=== PATIENT | male | born 1930 | race Caucasian/White ===

== ENCOUNTER → 2018-07-28 08:01 | Day surgery (SDC) | payer MEDICARE ==
[~2018-07-28 08:01] MED LIST: Heparin 2 UNITS/ML IVPREMIX* 1,000 ML IV ONE; Iodixanol 320 (CONTRAST) 100 ML SDV ONE; Lidocaine 1% INJ* 10 MG/ML 30 ML SDV ONE; Midazolam* 1 MG/ML 10 ML VIAL (10 MG) ONE; NS 0.9% 1000 ML* 1,000 ML IV SCH; fentaNYL* 50 MCG/ML 2 ML VIAL (100 MCG VIAL) ONE
[2018-07-28 16:04] VITALS: BP 138/109
--- NOTE | 2018-07-28 20:19 | CATH ---
CC: Dr. Victoriano Cm; Dr. Amarilis Fields; Dr. Homero Duvall, [facility], [facility] CARDIAC CATHETERIZATION REPORT: DATE OF PROCEDURE: 07/28/18 INDICATION FOR PROCEDURE: The patient being evaluated for upcoming mitral valve clip procedure with a history of significant underlying coronary artery disease and bypass in the past to reassess coronary anatomy and bypass in light of the mitral clip procedure. PROCEDURE: Coronary arteriography of the left coronary artery, LITTLEJOHN graft arteriography. CONSENT: The patient was interviewed and examined in the holding area where the risks and benefits were explained. He and his son understood them and he wished to proceed. PRE-CARDIAC CATHETERIZATION LABORATORY RESULTS: Hemoglobin and hematocrit of 10.9 and 34, platelet count of 149,000. Sodium 139, potassium 4.2, chloride 102 , bicarb 29, BUN and creatinine of 44 and 2.4. MEDICATIONS GIVEN DURING THE PROCEDURE: The patient was premedicated for DYE allergy with prednisone 50 mg at 12 hours, 6 hours and 1 hour before the procedure and 25 mg of Benadryl at 12 hours, 6 hours and 1 hour before the procedure. He was given 0.5 of Versed in the sleep lab technician and he was placed on 2 L oxygen by nasal cannula. APPROACH PURSUED: Right femoral artery. EQUIPMENT UTILIZED: 1. Right femoral artery sheath was a 5-[place] 11-cm sheath. 2. Left coronary artery diagnostic catheter - an FL5 curve 5-[place] catheter. 3. Internal mammary artery diagnostic catheter - a 5-[place] IM catheter. 4. The diagnostic guidewire was a 175 length J-tipped guidewire. DESCRIPTION OF PROCEDURE: The patient underwent hydration prior to cardiac catheterization in the holding area for 2-1/2 hours prior to the procedure. This was in light of his renal insufficiency. He then was brought to the cardiovascular laboratory and a formal time-out was performed. He was prepped and draped in a sterile fashion. The right groin area was anesthetized with 1% lidocaine. The right femoral artery was cannulated with an anterior wall only stick and the sheath was placed. Left coronary artery arteriography was performed followed by LITTLEJOHN graft arteriography. Following this, the decision was made to remove the sheath manually because of heavy calcification in the femoral artery. The sheath was removed and hemostasis was obtained with local pressure. The total contrast used was 15 cc of Visipaque dye. The radiation exposure included 7.2 minutes of fluoro time. The air kerma radiation was 427 milligray. The DAP radiation was 3422 microgray per meter square. RESULTS: LEFT CORONARY ARTERIOGRAPHY: The left coronary artery revealed a totally occluded proximal LAD. There was a stent noted from the left main into the proximal circumflex. The circumflex artery supplied a high bifurcating trifurcation marginal branch, which provided collateral blood flow to what appeared to be either a lower lying mid obtuse marginal branch or the last posterior left ventricular branch of a super dominant right coronary artery. Collateral blood flow retrograde filled back to most likely the right coronary artery and there was noted to be a lesion in the right coronary artery prior to a low-lying posterior LV branch, which was approximately 75%. Of note, the stent from the left main into the circumflex did appear to have significant in-stent restenosis when viewed in the second image (cranial IRISH projection). The degree of luminal reduction seen in the stent appeared to be as much as 75% to 80%. LITTLEJOHN GRAFT ARTERIOGRAPHY TO MID LAD: The LITTLEJOHN graft was widely patent with good anastomosis. There appeared to be collateral blood flow filling a posterior descending artery of the right coronary artery. OVERALL ASSESSMENT: Suggestive findings of significant in-stent restenosis within the stent from the left main into the circumflex artery. The LITTLEJOHN graft is widely patent with good anastomosis and collateral blood flow seen to what appears to be a PDA most likely of the right coronary artery. Collateral blood flow was seen from the circumflex to the distal most branch of a superdominant right coronary artery. Of note, in the past, a vein graft to that distal vessel had been stented and the stent to that vessel was noted on prior studies. The vein graft to this branch was known to be totally occluded in the past as was the vein graft to the right coronary artery. The minto right coronary artery was also known to be totally occluded at its origin. As such, no injections to these 3 vessels were performed in order to minimize dye load given his significant renal insufficiency. He has stage 4 chronic kidney disease. [id number]/[facility] #: [id number] [place]
== END | disposition home or self-care (01) ==
LOC: CHICATH 08:01
PROVIDERS: ATTEND Internal Medicine Cardiovascular Disease
DX: I35.0 Nonrheumatic aortic (valve) stenosis (principal); I25.810 Atherosclerosis of coronary artery bypass graft(s) without angina pectoris; Z95.1 Presence of aortocoronary bypass graft; I48.91 Unspecified atrial fibrillation; E78.5 Hyperlipidemia, unspecified; D50.9 Iron deficiency anemia, unspecified; I44.0 Atrioventricular block, first degree; N18.3 Chronic kidney disease, stage 3 (moderate); I12.9 Hypertensive chronic kidney disease with stage 1 through stage 4 chronic kidney disease, or unspecified chronic kidney disease
CPT/HCPCS: 93455; C1887; J1644; J2250; J3010

== ENCOUNTER 2019-02-11 14:14 | Inpatient (IN) | payer MEDICARE ==
[2019-02-11 18:44] LABS: Urine Appearance Clear; Urine Bilirubin Negative (Negative); Urine Blood Negative (Negative); Urine Color Yellow; Urine Glucose Negative (Negative); Urine Ketones Negative (Negative); Urine Nitrite Negative (Negative); Urine Protein Negative (Negative); Urine Specific Gravity 1.011 (1.010-1.030); Urine Urobilinogen Negative (Negative)
--- NOTE | 2019-02-11 18:56 | ED ---
GI/ HPI - HPI Summary HPI Summary: This patient is a 88 year old M presenting to ED with a chief complaint of penile swelling since four days ago. Patient fell two weeks ago and he has since retained fluid. Patient is on a diuretic for bilateral LE swelling. Four days ago, the swelling has spread to this penis. While in the waiting room at the ER, patient reports the swelling resolved itself after he used the bathroom multiple times. In the ED waiting room, patient was sitting on a wheelchair. Patient is not on blood thinners. The patient rates the pain 5/10 in severity. Symptoms aggravated by nothing. Symptoms alleviated by nothing. Patient denies any CP pain, abdominal pain, dyspnea, difficulty urinating, redness/warmth/pain of the penis. - History of Current Complaint Chief Complaint: EDGeneral Time Seen by Provider: 02/11/19 18:40 Stated Complaint: BOTH FEET INJURED FROM FALL Hx Obtained From: Patient Onset/Duration: Started Days Ago - 4 days, Resolved - Penile swelling resolved in ED waiting room, but bilateral LE swelling still present Pain Intensity: 0 - Allergy/Home Medications Allergies/Adverse Reactions: Allergies Allergy/AdvReac Type Severity Reaction Status Date / Time Iodinated Contrast- Oral and Allergy Unknown Verified 02/11/19 14:27 IV Dye Reaction Details PMH/Surg Hx/FS Hx/Imm Hx Endocrine/Hematology History: Reports: Hx Anemia Cardiovascular History: Reports: Hx Atrial Fibrillation, Hx Coronary Artery Disease, Hx Hypercholesterolemia, Hx Hypertension, Other Cardiovascular Problems /Disorders - Aortic valve disorder, 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 Cardiac cath and stents 1995. Femoral hernia repair 2008. Hoa fundoplication 1999. Appendectomy Infectious Disease History: No Infectious Disease History: Denies: Traveled Outside the [place] in Last 30 Days - Family History Known Family History: Positive: Cardiac Disease, Other - cancer - Social History Alcohol Use: Occasionally Alcohol Amount: 1 glass of wine Hx Substance Use: No Substance Use Type: Reports: None Hx Tobacco Use: Yes Smoking Status (MU): Former Smoker Type: Cigarettes Have You Smoked in the Last Year: No Review of Systems Negative: Chest Pain Negative: Shortness Of Breath Negative: Abdominal Pain Genitourinary: Negative - Difficulty urinating, penile redness/warmth/pain, Other - Penile swelling Positive: Edema - Bilateral LE All Other Systems Reviewed And Are Negative: Yes Physical Exam - Summary Physical Exam Summary: GENERAL: Patient is a well-developed and nourished M who is lying comfortable in the stretcher. Patient is not in any acute respiratory distress. HEAD AND FACE: Normocephalic EYES: PERRLA, EOMI x 2. EARS: Hearing grossly intact. MOUTH: Oropharynx within normal limits. NECK: Supple, trachea is midline, no adenopathy, no JVD, no carotid bruit. CHEST: Symmetric, no tenderness at palpation LUNGS: Clear to auscultation bilaterally. No wheezing or crackles. CVS: Regular rate and rhythm, S1 and S2 present, no murmurs or gallops appreciated. ABDOMEN: Soft, non-tender. Bowel sounds are normal. No abnormal abdominal pulsations. EXTREMITIES: 3+ bilateral pitting edema up to the groin GROIN: no obvious swelling to penile region, no tenderness to palpation in scrotal region NEURO: Alert and oriented x 3. No acute neurological deficits. Speech is normal and follows commands. SKIN: Dry and warm Triage Information Reviewed: Yes Vital Signs On Initial Exam: Initial Vitals Temp Pulse Resp BP Pulse Ox 97.5 F 92 19 142/83 97 02/11/19 14:24 02/11/19 14:24 02/11/19 14:24 02/11/19 14:24 02/11/19 14:24 Vital Signs Reviewed: Yes Diagnostics - Vital Signs Vital Signs Temp Pulse Resp BP Pulse Ox 02/11/19 16:26 97.7 F 88 17 129/69 96 02/11/19 14:24 97.5 F 92 19 142/83 97 - Laboratory Lab Results: Lab Results 02/11/19 Range/Units 18:05 Urine Color Yellow Urine Appearance Clear Urine pH 6.0 (5-9) Ur Specific [place] 1.011 (1.010-1.030) Urine Protein Negative (Negative) Urine Ketones Negative (Negative) Urine Blood Negative (Negative) Urine Nitrate Negative (Negative) Urine Bilirubin Negative (Negative) Urine Urobilinogen Negative (Negative) Ur Leukocyte Esterase Negative (Negative) Urine Glucose Negative (Negative) Urine Ascorbic Acid * A (Negative) Result Diagrams: 02/13/19 05:59 02/13/19 05:59 Lab Statement: Any lab studies that have been ordered have been reviewed, and results considered in the medical decision making process. - Radiology CXR Radiology Interpretation Completed By: ED Physician Summary of Radiographic Findings: Cardiomegaly, CHF, pending official radiology report. - EKG 1954 Cardiac Rate: NL - 90 EKG Rhythm: Atrial Fibrillation Summary of EKG Findings: Atrial fibrillation at 90 BPM, intraventricular conduction delay, non-specific T wave changes throughout. Re-Evaluation - Re-Evaluation First Eval Re-Evaluation Time: 20:02 Comment: Discussed results with patient. Patient agrees to be admitted to [facility]. GIGU Course/Dx - Course Course Of Treatment: This patient is a 88 year old M presenting to ED with a chief complaint of penile swelling since four days ago that resolved in the ED waiting room. Patient still has severe bilateral LE swelling. In the ED course, patient received Lasix. Blood work and UA obtained. CXR revealed cardiomegaly, CHF, pending official radiology report. EKG at 1954 revealed atrial fibrillation at 90 BPM, intraventricular conduction delay, non-specific T wave changes throughout. Case discussed with hospitalist. I discussed results with patient. The patient agrees with this plan. Patient will be admitted to [facility] with dx of CHF. - Diagnoses Provider Diagnoses: CHF (congestive heart failure) - Physician Notifications Discussed Care Of Patient With: Jose Belle Time Discussed With Above Provider: 20:01 Instructed by Provider To: Admit As Inpatient - Discussed case with Dr. Belle, hospitalist, who accpeted patient for admission to [facility]. - Critical Care Time Critical Care Time: 30-74 min - 30 minutes Discharge - Sign-Out/Discharge Documenting (check all that apply): Patient Departure - Admit Patient Received Moderate/Deep Sedation with Procedure: No - Discharge Plan Condition: Fair Disposition: ADMITTED TO [facility] - Billing Disposition and Condition Condition: FAIR Disposition: Admitted to [facility] - Attestation Statements Document Initiated by Scribe: Yes Documenting Scribe: Pk Patel Provider For Whom Scribe is Documenting (Include Credential): Courtney Guerin MD Scribe Attestation: I, Pk Patel, scribed for Courtney Guerin MD on 02/13/19 at 0812. Scribe Documentation Reviewed: Yes Provider Attestation: The documentation as recorded by the scribe, Pk Patel accurately reflects the service I personally performed and the decisions made by me, Courtney Guerin MD Status of Scribe Document: Viewed
[2019-02-11 18:58] LABS: ABS Eosinophils 0.2 10^3/ul (0-0.6); ABS Lymphocytes 0.8 10^3/ul (1.0-4.8); ABS Monocytes 0.5 10^3/ul (0-0.8); ABS Neutrophils 4.1 10^3/ul (1.5-7.7); Eosinophil % 3.6 %; Hematocrit 30 % (42-52); Hemoglobin 9.6 g/dL (14.0-18.0); Lymphocyte % 13.9 %; Mean Corpuscular HGB Conc 32 g/dL (31-36); Mean Corpuscular Hemoglobin 29 pg (27-31); Mean Corpuscular Volume 90 fL (80-94); Mean Platelet Volume 7.3 fL (7.4-10.4); Platelet Count 231 10^3/uL (150-450); Red Blood Count 3.35 10^6 /uL (4.18-5.48); Red Cell Distribution Width 18 % (10-15); White Blood Count 5.6 10^3/uL (3.5-10.8)
[2019-02-11 19:01] LABS: INR 1.34 (0.82-1.09)
[2019-02-11 19:10] LABS: ALT 13 U/L (7-52); AST 31 U/L (13-39); Albumin 4.1 g/dL (3.2-5.2); Albumin/Globulin Ratio 1.2 (1-3); Alkaline Phosphatase 129 U/L (34-104); Anion Gap 8 mmol/L (2-11); BUN/Creatinine Ratio 15.3 (8-20); Blood Urea Nitrogen 29 mg/dL (6-24); C Reactive Protein 7.69 mg/L (<8.01); CO2 Carbon Dioxide 26 mmol/L (22-32); Calcium 9.6 mg/dL (8.6-10.3); Chloride 102 mmol/L (101-111); EGFR African American 40.9 (>60); EGFR Non-African American 33.8 (>60); Globulin 3.4 g/dL (2-4); Glucose 124 mg/dL (70-100); Potassium 3.9 mmol/L (3.5-5.0); Sodium 136 mmol/L (135-145); Total Protein 7.5 g/dL (6.4-8.9)
[2019-02-11] MEDS ORDERED: Furosemide IV* 10 MG/ML VIAL (40 MG) IV SLOW PU ONE (19:18)
[2019-02-11 19:45] LABS: Troponin I 0.05 ng/mL (<0.04)
[2019-02-11] MEDS: Heparin VIAL(*) 5000 UNITS/ML VIAL (FIVE THOUSAND) SUBCUT SCH (22:28)
[2019-02-11 23:03] LABS: Troponin I 0.05 ng/mL (<0.04)
--- NOTE | 2019-02-11 23:13 | HP ---
CC: Amarilis Fields MD; Victoriano Cm MD * HISTORY AND PHYSICAL: DATE OF ADMISSION: 02/11/19 PRIMARY CARE PROVIDER: Amarilis Fields MD BIOLOGICAL LAB TECHNICIAN: Victoriano Cm MD ATTENDING PHYSICIAN: Jose Belle MD * (dictated by DARA Sue). CHIEF COMPLAINT: 1. Penile edema. 2. Bilateral lower extremity edema. HISTORY OF PRESENT ILLNESS: Mr. Greene is an 88-year-old male with a past medical history of CHF, atrial fibrillation, CAD, anemia, who presented to the ER today stating that he fell approximately 2 weeks ago and has had increasing bilateral lower extremity edema since then. He notes that approximately 4 days ago, he started to experience penile swelling. He states again that he fell 2 weeks ago, he had no head injury. He states that he was standing and his right knee twisted and he fell onto the floor. He is unsure of how he landed, but notes that after the fall, he started to develop lower extremity edema that slowly worsened. He was and still is able to walk after the fall. The patient states that he typically gets lower extremity edema during the day, but this disappears at night with elevation of the legs. He states that his swelling has not decreased for the last 2 weeks. He notes that 3 to 4 days ago, he started to notice penile swelling. This is his biggest concern and what prompted him to seek evaluation at the ER. While in the waiting room, the patient urinated approximately 3 times and notes that the penile swelling disappeared, but he continues to have lower extremity edema. The patient states that he has good urine output. He states that he weighs himself daily. He typically weighs 175 and now is weighing close to 190 pounds. He has not increased his fluids or sodium, although he does not measure or restrict these. His torsemide was increased from 20 to 40 approximately 5 days ago. He denies shortness of breath. He does note some dyspnea on exertion, but notes that this has not changed recently. He denies PND. While in the emergency department, the patient received a full workup which included lab work revealing chronic anemia, chronically elevated creatinine which is within normal limits. His alk phos was elevated. He had a troponin of 0.05. BNP was 1147. Urinalysis was negative. EKG showed irregular rhythm, atrial fibrillation. Chest x-ray was ordered and results are pending, although there appears to be some cephalization and cardiomegaly. The patient was given furosemide 40 mg IV. Hospitalist team was asked to evaluate the patient for admission. PAST MEDICAL HISTORY: 1. CHF. 2. Atrial fibrillation. 3. Coronary artery disease: CABG 1984, stent 1995. 4. Mitral valve repair. 5. Hypertension. 6. Hyperlipidemia. 7. Anemia. 8. GERD, Castillo esophagus. 9. BPH. 10. First-degree AV block. 11. Gout. 12. CKD stage 3. 13. Osteoarthritis. 14. Depression. PAST SURGICAL HISTORY: 1. 1984, CABG. 2. 1995, stent. 3. 2008, femoral hernia repair. 4. 1999, Hoa fundoplication, appendectomy. HOME MEDICATIONS: 1. Acetaminophen 500 mg p.o. b.i.d. 2. Aspirin 81 mg p.o. daily. 3. Digoxin 0.125 mg p.o. daily. 4. Finasteride 5 mg p.o. daily. 5. Iron polysaccharide complex 150 mg p.o. daily. 6. Isosorbide mononitrate ER 30 mg p.o. daily. 7. Metoprolol succinate 25 mg p.o. daily. 8. Multivitamin 1 cap p.o. daily. 9. Nitroglycerin 0.4 mg sublingual p.r.n. chest pain q.5 minutes x3. 10. Omeprazole 20 mg p.o. daily. 11. Torsemide 40 mg p.o. daily. 12. Vitamin B complex 1 cap p.o. daily. DRUG ALLERGIES: IODINATED CONTRAST, hives. FAMILY HISTORY: Positive for heart disease. Father had heart disease, CVA. Two sisters with cancer, unsure what kind. Mother of stroke. Negative for diabetes mellitus. SOCIAL HISTORY: The patient is a former smoker. He states that he smoked three and a half packs per day from the ages of 18 to 21 and then discontinued use of tobacco. He drinks alcohol daily, 1 wine per day. He does not use any other drugs. He lives at home alone. His son lives next door to him. In the event that he is unable to make his own medical decisions, he has appointed his son, Andi Greene, to be his surrogate decision maker. REVIEW OF SYSTEMS: A 10-point review of systems has been performed and all the pertinent positives and negatives are in the HPI, all other systems are negative. PHYSICAL EXAMINATION GENERAL: Mr. Greene is a well-developed, well-nourished, overweight, elderly white male, who is sitting up in bed. He is breathing comfortably. He appears to be in no acute distress. He is cooperative, appropriate, pleasant. VITAL SIGNS: Temperature 98.1, temporal; heart rate 87; respiratory rate 16; oxygen saturation 97% on room air; blood pressure 151/107. HEENT: Normocephalic, atraumatic. PERRL. EOMI. Nonicteric sclerae. Hearing grossly intact. Oral mucous membranes are moist without lesions. RESPIRATORY: Symmetrical chest expansion without use of accessory muscles. Lungs are clear to auscultation bilaterally without rhonchi, wheezes, or rubs. CARDIOVASCULAR: Irregular rhythm, rate controlled. S1, S2 present without murmurs, rubs, or gallops. Positive JVD. Positive bilateral lower extremity edema, 3+ pitting to the groin. Negative for penile edema. ABDOMEN: Bowel sounds noted in all quadrants. Nontender to palpation. MUSCULOSKELETAL: Full range of motion without pain or deformities. NEUROLOGIC: The patient is awake. He is alert and oriented x3. Cranial nerves are grossly intact and he is able to move all of his extremities. DIAGNOSTIC STUDIES AND LABORATORY DATA: RBC 3.35, Hgb 9.6, HCT 30, RDW 18, MPV 7.3. BUN 29, creatinine 1.89. Glucose 124. Alk phos 129. Troponin 0.05. CRP 7.69. BNP 1147. Chest x-ray pending but the patient does have cardiomegaly. There appears to be some cephalization. ECG, rate of 90. There appears to be atrial fibrillation, rhythm is irregular. ASSESSMENT AND PLAN: Mr. Greene is an 88-year-old male with a past medical history of congestive heart failure, atrial fibrillation, coronary artery disease, who presented to the emergency room today with complaints of lower extremity and penile swelling. He was found to have some cephalization on chest x-ray and elevated BNP, positive JVD and swelling in the lower extremities. The patient will be admitted inpatient for: 1. Acute on chronic congestive heart failure exacerbation. Due to physical exam findings and elevated BNP, it is reasonable to suspect that the patient is experiencing exacerbation of his heart failure. His last echo was 06/13/18. We will repeat his echo tomorrow. He was given Lasix 40 IV in the ER. He will continue on Lasix 40 IV daily. We will hold torsemide at this time. Daily weights and I's and O's have been ordered. The patient is also noted to have had an approximately 15-pound weight gain. There is concern in the setting of recent fall and then development of lower extremity edema that there may have been some trauma to the lower extremities. Ultrasound, venous Doppler of bilateral lower extremities have been ordered. 2. Atrial fibrillation. Continue metoprolol, digoxin. The patient does not appear to be on anticoagulation. 3. Hypertension. Continue home medication metoprolol. 4. Coronary artery disease. Continue aspirin, metoprolol. 5. Benign prostatic hypertrophy. Continue finasteride. 6. Gastroesophageal reflux disease, Castillo esophagus. Continue omeprazole. 7. FEN. The patient has been placed on heart-healthy diet, low sodium. IV fluids will be held at this time due to fluid overload. 8. DVT prophylaxis. According to the DVT Risk Assessment, the patient scores 3 placing him at high risk. He will be started on heparin. 9. Code status. DNR/DNI. MOLST has been completed. TIME SPENT: Approximately 60 minutes was spent on this admission, greater than half that time was spent with the patient and his son obtaining history, performing physical exam, and reviewing the plan of care. The case has been reviewed with my attending, Dr. Belle, who is in agreement with the plan of care. DARA COLLADO [id number]/[facility] #: [id number] MTDD
[2019-02-12 02:04] LABS: Troponin I 0.05 ng/mL (<0.04)
[2019-02-12] MEDS: Heparin VIAL(*) 5000 UNITS/ML VIAL (FIVE THOUSAND) SUBCUT SCH ×3 (05:59→21:02)
[2019-02-12 06:58] LABS: ABS Eosinophils 0.2 10^3/ul (0-0.6); ABS Lymphocytes 0.5 10^3/ul (1.0-4.8); ABS Monocytes 0.5 10^3/ul (0-0.8); Eosinophil % 3.8 %; Hematocrit 29 % (42-52); Hemoglobin 9.4 g/dL (14.0-18.0); Lymphocyte % 9.8 %; Mean Corpuscular HGB Conc 33 g/dL (31-36); Mean Corpuscular Hemoglobin 29 pg (27-31); Mean Corpuscular Volume 90 fL (80-94); Mean Platelet Volume 7.8 fL (7.4-10.4); Platelet Count 195 10^3/uL (150-450); Red Blood Count 3.23 10^6 /uL (4.18-5.48); Red Cell Distribution Width 18 % (10-15); White Blood Count 5.2 10^3/uL (3.5-10.8)
[2019-02-12 07:12] LABS: BUN/Creatinine Ratio 16.6 (8-20); Calcium 9.1 mg/dL (8.6-10.3); EGFR Non-African American 35.6 (>60); Potassium 3.9 mmol/L (3.5-5.0)
[2019-02-12] MEDS: Digoxin TAB* 0.125 MG PO SCH (09:29)
[2019-02-12] MEDS: Furosemide IV* 10 MG/ML VIAL (40 MG) IV SCH (09:29)
[2019-02-12] MEDS: Isosorbide Mononitrate ER TAB* 30 MG PO SCH (09:29)
[2019-02-12] MEDS: Metoprolol Succinate XL TAB* 25 MG PO SCH (09:29)
[2019-02-12] MEDS: Aspirin 81 mg CHEW TAB* 81 MG TAB.CHEW PO SCH (09:30)
[2019-02-12] MEDS: Pantoprazole TAB * 40 MG TAB PO SCH (09:30)
[2019-02-12] MEDS: Finasteride TAB* 5 MG PO SCH (09:30)
[2019-02-12] MEDS: NON FORMULARY MED* (Iron Polysaccharide Complex [Ferrex 150] 150 MG) PO SCH (09:32)
[2019-02-12] MEDS: Acetaminophen TAB* 325 MG PO PRN (09:37)
[2019-02-12] MEDS ORDERED: Hemorrhoidal OINT PR PRN (12:50)
--- NOTE | 2019-02-12 16:52 | ECHO ---
*[facility]* [place] [address] Fax #: [phone] Transthoracic Echocardiogram Patient: Samuel Greene : 1930 Study Date: 02/12/2019 Age: 88 Gender: M HR: 62 bpm Height: 67 in /170.2 cm BSA: 1.98 m^2 Weight: 189.6 lb /86.2 kg BMI: 29.8 kg/m^2 *Financial Planning Assistant: * Yaquelin Armendariz RD *Referring Physician: * Leslie MazariegosReading Physician: * Maurice Booth MD Indications: Congestive Heart Failure. Edema. Abnormal EKG. Atrial Fibrillation. Chest Pain, unspecified. History: Atrial fibrillation. Coronary artery disease. Aortic valve disease. Mitral valve disease. Functional status: Renal failure. Risk factors: Hypertension. Hyperlipidemia. Barretts esophagus. Labs, prior tests, procedures, and surgery: Catheterization. There was a stenosis which was treated with a stent. Coronary artery bypass grafting. Conclusions Summary: 1. Left ventricle: Systolic function is at the lower limits of normal. The estimated ejection fraction is 50-55%. Wall motion is normal; there are no regional wall motion abnormalities. 2. Right ventricle: Systolic function is mildly to moderately reduced. Systolic pressure is severely increased. 3. Ventricular septum: There is septal flattening of the interventricular septum consistent with RV volume or pressure overload. 4. Left atrium: The atrium is severely dilated. 5. Mitral valve: The findings are consistent with mild stenosis. There is moderate regurgitation. Pt is s/p Mitral clip. 6. Aortic valve: There is no evidence of stenosis. There is mild regurgitation. 7. Tricuspid valve: There is severe regurgitation. 8. Pulmonary arteries: Systolic pressure is severely increased. 9. Compared to study of 09/22/18, there is little change. Study data: Transthoracic echocardiogram. Procedure: Transthoracic echocardiography was performed. Image quality was fair. Complete 2D, spectral Doppler, and color flow Doppler. Location: Bedside. Patient status: Inpatient. Patient room number: 412-1. Rhythm: Atrial fibrillation. Findings Left ventricle: The cavity size is normal. Wall thickness is mildly to moderately increased. Systolic function is at the lower limits of normal. The estimated ejection fraction is 50-55%. Wall motion is normal; there are no regional wall motion abnormalities. Left ventricular diastolic function parameters are indeterminate. Right ventricle: The cavity size is moderately dilated. Systolic function is mildly to moderately reduced. Systolic pressure is severely increased. Ventricular septum: There is septal flattening of the interventricular septum consistent with RV volume or pressure overload. Left atrium: The atrium is severely dilated. Right atrium: The atrium is severely dilated. Mitral valve: The annulus is calcified. The leaflets are mildly calcified. The findings are consistent with mild stenosis. There is moderate regurgitation. Pt is s/p Mitral clip. Aortic valve: The valve is trileaflet. The leaflets are mildly thickened. Thickening, consistent with sclerosis. There is no evidence of stenosis. There is mild regurgitation. Tricuspid valve: The leaflets are normal thickness. There is no evidence of stenosis. There is severe regurgitation. Hepatic candy flow reversal is present Pulmonic valve: The leaflets are normal thickness. There is no evidence of stenosis. There is mild regurgitation. Aorta: Aortic root: The aortic root is mildly dilated. Ascending aorta: The ascending aorta is mildly dilated. Aortic arch: The aortic arch is poorly visualized. Pericardium: There is no significant pericardial effusion. Pulmonary arteries: The main pulmonary artery is normal-sized. Systolic pressure is severely increased. Systemic veins: Inferior vena cava: The vessel is dilated. The respirophasic diameter changes are blunted (< 50%). Measurements Left ventricle Value Ref Aortic valve continued Value Ref VERONIKA, LAX 4.7 cm 4.2 - 5.8 Mean grad, S 4.0 mm Hg ----- ESD, LAX 3.6 cm 2.5 - 4.0 Peak grad, S 7.0 mm Hg ----- FS, LAX (L) 24 % 25 - 43 ARLET, VTI 1.74 cm^2 ----- PW, ED, LAX (H) 1.3 cm 0.6 - 1.0 ARLET, Vmax 1.55 cm^2 ----- FS (L) 24 % 25 - 43 AR peak v 3.73 m/sec ----- PW, ED (H) 1.3 cm 0.6 - 1.0 AR PHT 634 ms ----- E', lat nabil, TDI (L) 7.9 cm/sec >=10.0 AR peak grad 56 mm Hg - ---- E/e', lat nabil, 20 TDI Mitral valve Value Ref E', med nabil, TDI (L) 4.9 cm/sec >=7.0 Peak E 1.59 m/sec - ---- E/e', med nabil, 32 Peak A 0 m/sec ---- - TDI Decel time 222 ms ----- E', avg, TDI 6.4 cm/sec PHT 146 ms ---- - E/e', avg, TDI (H) 25 <=14 Mean grad, D 3.0 mm Hg - ---- Peak grad, D 11.0 mm Hg ----- LVOT Value Ref Peak E/A ratio 1590 ----- Diam, S 2.10 cm MVA, PHT 1.3 cm^2 ----- Area 3.5 cm^2 ERO, PISA 0.16 cm^2 ----- Peak tu, S 0.61 m/sec MR vol, PISA 23 ml ----- Mean grad, S 1 mm Hg MR fraction, PISA 37 % ----- SV 40 ml SV/bsa 20 ml/m^2 Pulmonic valve Value Ref Peak v, S 0.98 m/sec ----- Ventricular septum Value Ref Peak grad, S 4.0 mm Hg ----- IVS, ED (H) 1.2 cm 0.6 - 1.0 OK v, ED 1.55 m/sec ----- OK grad, ED 10 mm Hg ----- Right ventricle Value Ref VERONIKA, LAX 4.2 cm Tricuspid valve Value Ref VERONIKA minor ax, A4C (H) 5.9 cm 1.9 - 3.5 TR peak v (H) 3.4 m/sec <=2.8 mid Peak RV-RA grad, S 46 mm Hg ----- Pressure, S 61 mm Hg Aortic root Value Ref Left atrium Value Ref Root diam 3.9 cm <4.1 AP dim, ES (H) 5.40 cm 3.00 - 4.00 Ascending aorta Value Ref ML dim, A4C 4.8 cm AAo AP diam, S 3.8 cm ----- SI dim, A4C 7.6 cm Vol/bsa, ES, 1-p (H) 55 ml/m^2 12 - 37 Decending aorta Value Ref A4C Joe peak tu 0.72 m/sec ----- Vol/bsa, ES, A/L (H) 77 ml/m^2 16 - 34 Pulmonary artery Value Ref Right atrium Value Ref Pressure, S 57.0 mm Hg ----- SI dim, ES (H) 7.0 cm 3.4 - 5.3 ML dim, ES, A4C 4.4 cm 2.6 - 4.4 Inferior vena cava Value Ref SI dim, ES, A4C (H) 7.0 cm 3.4 - 5.3 Diam 3.3 cm ----- Estimated RAP 15 mm Hg Aortic valve Value Ref Nabil diam, ED 2.2 cm Peak v, S 1.36 m/sec VTI, S 24.9 cm Legend: (L) and (H) atiya values outside specified reference range. Prepared and electronically signed by Maurice Booth MD 02/12/2019 16:52
--- NOTE | 2019-02-12 17:04 | PN ---
Subjective Date of Service: 02/12/19 Interval History: Mr. Greene is feeling much better today, though he is not able to further verbalize how. He thinks his BLE edema is decreased. Denies CP, SOB, N/V. No concerns from nursing. Family History: Unchanged from Admission Social History: Unchanged from Admission Past Medical History: Unchanged from Admission Objective Active Medications: Acetaminophen (Tylenol Tab*) 650 mg PO Q6H PRN PAIN Aspirin (Aspirin 81 Mg Chew Tab*) 81 mg PO DAILY DELORIS Digoxin (Lanoxin Tab*) 0.125 mg PO DAILY DELORIS Finasteride (Proscar Tab*) 5 mg PO DAILY DELORIS Furosemide (Lasix Iv*) 40 mg IV DAILY DELORIS Heparin Sodium (Porcine) (Heparin Vial(*)) 5,000 units SUBCUT Q8HR DELORIS Isosorbide Mononitrate (Imdur Er Tab*) 30 mg PO DAILY DELORIS Metoprolol Succinate (Toprol Xl Tab*) 25 mg PO DAILY DELORIS Non-Formulary Medication (Iron Polysaccharide Complex [Ferrex 150]) 150 mg PO DAILY DELORIS Pantoprazole Sodium (Protonix Tab*) 40 mg PO DAILY DELORIS Phenyleph/Shark Oil/Min Oil/Petrol (Preparation H*) 1 applic [place] TID PRN hemorrhoids Vital Signs - 8 hr 02/12/19 02/12/19 09:29 11:33 Temperature 96 F Pulse Rate 101 61 Respiratory 16 Rate Blood Pressure 139/83 (mmHg) O2 Sat by Pulse 98 Oximetry Oxygen Devices in Use Now: None Appearance: Elderly male sitting in bed in NAD Eyes: No Scleral Icterus Ears/Nose/Mouth/Throat: Mucous Membranes Moist Neck: NL Appearance and Movements; NL JVP, Trachea Midline Respiratory: Symmetrical Chest Expansion and Respiratory Effort, Clear to Auscultation Cardiovascular: NL Sounds; No Murmurs; No JVD Extremities: - - +3 pitting BLE Neurological: Alert and Oriented x 3 Lines/Tubes/Other Access: Clean, Dry and Intact Peripheral IV Nutrition: Taking PO's Result Diagrams: 02/12/19 06:17 02/12/19 06:17 Assess/Plan/Problems-Billing Assessment: Mr. Greene is an 88 yo M with PMH of CHF, afib, CAD s/p CABG, HTN, and CKD stage 3 ; who presented to the ED with c/o BLE and penile edema and was found to have a CHF exacerbation. - Patient Problems (1) CHF exacerbation Code(s): I50.9 - HEART FAILURE, UNSPECIFIED Comment: - BLE and penile edema, somewhat improved from admission - Echo shows EF 50-55%, no evidence of diastolic dysfunction - Daily weights, I&O - Continue furosemide (2) Right leg DVT Code(s): I82.401 - ACUTE EMBOLISM AND THOMBOS UNSP DEEP VEINS OF R LOW EXTREM Comment: - US shows partial thrombus of right mid and distal femoral veins and thrombosis of one of the paired peroneal veins - Not on anticoagulation for afib d/t history of GI bleed and GI AVM; also history of falls - Appreciate Heme consult - Possible need for IVC filter if he cannot start anticoagulation (3) Atrial fibrillation Code(s): I48.91 - UNSPECIFIED ATRIAL FIBRILLATION Comment: - Mostly rate controlled, though HR has occasionally been in the low 100s - Continue metoprolol, digoxin (4) CAD (coronary artery disease) Code(s): I25.10 - ATHSCL HEART DISEASE OF [place] CORONARY ARTERY W/O ANG PCTRS Comment: - S/p CABG in 1984 and stent in 1995 - No acute concerns - Continue aspirin, metoprolol, isosorbide (5) Hypertension Code(s): I10 - ESSENTIAL (PRIMARY) HYPERTENSION Comment: - Mostly normotensive, SBP 120-140s - Continue metoprolol, furosemide (6) Stage 3 chronic kidney disease Code(s): N18.3 - CHRONIC KIDNEY DISEASE, STAGE 3 (MODERATE) Comment: - Creatinine at baseline (7) BPH (benign prostatic hyperplasia) Code(s): N40.0 - BENIGN PROSTATIC HYPERPLASIA WITHOUT LOWER URINRY TRACT SYMP Comment: - Continue finasteride (8) GERD (gastroesophageal reflux disease) Code(s): K21.9 - GASTRO-ESOPHAGEAL REFLUX DISEASE WITHOUT ESOPHAGITIS Comment : - Continue pantoprazole (9) DVT prophylaxis Code(s): Z29.9 - ENCOUNTER FOR PROPHYLACTIC MEASURES, UNSPECIFIED Comment: - Heparin SQ (10) DNR (do not resuscitate) Comment: Status and Disposition: Inpatient. Anticipate d/c home when medically stable. Attending: Elena Becker
[2019-02-13] MEDS: Heparin VIAL(*) 5000 UNITS/ML VIAL (FIVE THOUSAND) SUBCUT SCH ×2 (06:07→21:46)
[2019-02-13 06:53] LABS: ABS Eosinophils 0.2 10^3/ul (0-0.6); ABS Lymphocytes 0.5 10^3/ul (1.0-4.8); ABS Monocytes 0.5 10^3/ul (0-0.8); ABS Neutrophils 3.2 10^3/ul (1.5-7.7); Eosinophil % 4.3 %; Hematocrit 29 % (42-52); Hemoglobin 9.3 g/dL (14.0-18.0); Lymphocyte % 11.8 %; Mean Corpuscular HGB Conc 32 g/dL (31-36); Mean Corpuscular Hemoglobin 29 pg (27-31); Mean Corpuscular Volume 90 fL (80-94); Mean Platelet Volume 7.6 fL (7.4-10.4); Platelet Count 186 10^3/uL (150-450); Red Cell Distribution Width 18 % (10-15); White Blood Count 4.4 10^3/uL (3.5-10.8)
[2019-02-13 07:10] LABS: BUN/Creatinine Ratio 15.7 (8-20); Calcium 9.4 mg/dL (8.6-10.3); EGFR African American 47.5 (>60); EGFR Non-African American 39.3 (>60); Potassium 3.8 mmol/L (3.5-5.0)
[2019-02-13] MEDS: NON FORMULARY MED* (Iron Polysaccharide Complex [Ferrex 150] 150 MG) PO SCH (08:33)
--- NOTE | 2019-02-13 08:59 | PN ---
Progress Note - Progress Note Date of Service: 02/13/19 SOAP: Hematology consult pre-note Patient seen 02/12, full note to follow. - US reviewed with radiology and most c/w DVT Femoral and popliteal - Discussed pros and cons of anticoagulation and IVC filter with patient and family, he is thinking about it. - Possible groin hematoma, likely chronic. Check non contrast CT to clarify. - Check Ddimer - Lovenox is safest blood thinner, start now while deciding on prison plan. Adj for renal function, 80 mg SQ daily - Re-check Iron studies.
[2019-02-13] MEDS ORDERED: Enoxaparin(*) 80 MG/0.8 ML SYR SUBCUT SCH (10:00)
[2019-02-13] MEDS: Isosorbide Mononitrate ER TAB* 30 MG PO SCH (11:00)
[2019-02-13] MEDS: Metoprolol Succinate XL TAB* 25 MG PO SCH (11:00)
[2019-02-13] MEDS: Digoxin TAB* 0.125 MG PO SCH (11:01)
[2019-02-13] MEDS: Pantoprazole TAB * 40 MG TAB PO SCH (11:01)
[2019-02-13] MEDS: Aspirin 81 mg CHEW TAB* 81 MG TAB.CHEW PO SCH (11:01)
[2019-02-13] MEDS: Furosemide IV* 10 MG/ML VIAL (40 MG) IV SCH (11:03)
[2019-02-13] MEDS: Finasteride TAB* 5 MG PO SCH (11:03)
[2019-02-13 13:26] LABS: % Iron Saturation 10 % (15-55); Iron 27 ug/dL (50-212); Total Iron Binding Capacity 269 mcg/dL (250-450); Transferrin 192 mg/dL (203-362)
[2019-02-13 13:46] LABS: Ferritin 36.9 ng/mL (24-336)
--- NOTE | 2019-02-13 16:17 | PN ---
Subjective Date of Service: 02/13/19 Interval History: Mr. Greene is feeling better today. He does not feel his edema has decreased from yesterday, but overall feels more himself. Denies bloating or SOB. Has been up ambulating. Denies CP, N/V. No concerns from nursing. Family History: Unchanged from Admission Social History: Unchanged from Admission Past Medical History: Unchanged from Admission Objective Active Medications: Acetaminophen (Tylenol Tab*) 650 mg PO Q6H PRN PAIN Aspirin (Aspirin 81 Mg Chew Tab*) 81 mg PO DAILY DELORIS Digoxin (Lanoxin Tab*) 0.125 mg PO DAILY DELORIS Enoxaparin Sodium (Lovenox(*)) 80 mg SUBCUT Q24H DELORIS Finasteride (Proscar Tab*) 5 mg PO 2100 DELORIS Furosemide (Lasix Iv*) 40 mg IV DAILY DELORIS Isosorbide Mononitrate (Imdur Er Tab*) 30 mg PO DAILY DELORIS Metoprolol Succinate (Toprol Xl Tab*) 25 mg PO DAILY DELORIS Non-Formulary Medication (Iron Polysaccharide Complex [Ferrex 150]) 150 mg PO DAILY DELORIS Pantoprazole Sodium (Protonix Tab*) 40 mg PO DAILY DELORIS Phenyleph/Shark Oil/Min Oil/Petrol (Preparation H*) 1 applic [place] TID PRN hemorrhoids Vital Signs - 8 hr 02/13/19 11:10 Temperature 97.5 F Pulse Rate 81 Respiratory 22 Rate Blood Pressure 133/62 (mmHg) O2 Sat by Pulse 95 Oximetry Oxygen Devices in Use Now: None Appearance: Elderly male laying in bed in NAD Eyes: No Scleral Icterus Ears/Nose/Mouth/Throat: Mucous Membranes Moist Neck: NL Appearance and Movements; NL JVP, Trachea Midline Respiratory: Symmetrical Chest Expansion and Respiratory Effort, Clear to Auscultation Cardiovascular: NL Sounds; No Murmurs; No JVD Abdominal: NL Sounds; No Tenderness; No Distention Extremities: - - +2 pitting BLE Neurological: Alert and Oriented x 3 Lines/Tubes/Other Access: Clean, Dry and Intact Peripheral IV Nutrition: Taking PO's Result Diagrams: 02/13/19 05:59 02/13/19 05:59 Assess/Plan/Problems-Billing Assessment: Mr. Greene is an 88 yo M with PMH of CHF, afib, CAD s/p CABG, HTN, and CKD stage 3 ; who presented to the ED with c/o BLE and penile edema and was found to have a CHF exacerbation. - Patient Problems (1) CHF exacerbation Code(s): I50.9 - HEART FAILURE, UNSPECIFIED Comment: - BLE and penile edema, somewhat improved from admission - Echo shows EF 50-55%, no evidence of diastolic dysfunction - Daily weights, I&O - Continue furosemide (2) Right leg DVT Code(s): I82.401 - ACUTE EMBOLISM AND THOMBOS UNSP DEEP VEINS OF R LOW EXTREM Comment: - US on admission shows evidence of thrombosis, though repeat US today unremarkable for any DVT; spoke with the radiologist who confirms there is NO DVT, the presence of edema made veins difficult to compress initially - Updated Dr. Dennis on new findings - D/c Lovenox (3) Atrial fibrillation Code(s): I48.91 - UNSPECIFIED ATRIAL FIBRILLATION Comment: - Rate controlled - Continue metoprolol, digoxin (4) CAD (coronary artery disease) Code(s): I25.10 - ATHSCL HEART DISEASE OF [place] CORONARY ARTERY W/O ANG PCTRS Comment: - S/p CABG in 1984 and stent in 1995 - No acute concerns - Continue aspirin, metoprolol, isosorbide (5) Hypertension Code(s): I10 - ESSENTIAL (PRIMARY) HYPERTENSION Comment: - Normotensive, SBP 110-130s - Continue metoprolol, furosemide (6) Stage 3 chronic kidney disease Code(s): N18.3 - CHRONIC KIDNEY DISEASE, STAGE 3 (MODERATE) Comment: - Creatinine at baseline (7) BPH (benign prostatic hyperplasia) Code(s): N40.0 - BENIGN PROSTATIC HYPERPLASIA WITHOUT LOWER URINRY TRACT SYMP Comment: - Continue finasteride (8) GERD (gastroesophageal reflux disease) Code(s): K21.9 - GASTRO-ESOPHAGEAL REFLUX DISEASE WITHOUT ESOPHAGITIS Comment : - Continue pantoprazole (9) DVT prophylaxis Code(s): Z29.9 - ENCOUNTER FOR PROPHYLACTIC MEASURES, UNSPECIFIED Comment: - Heparin SQ (10) DNR (do not resuscitate) Comment: Status and Disposition: Inpatient. Anticipate d/c home when medically stable. Attending: Elena Becker
[2019-02-13] MEDS ORDERED: Finasteride TAB* 5 MG PO SCH (21:00)
[2019-02-13] MEDS: Acetaminophen TAB* 325 MG PO PRN (21:49)
[2019-02-14] MEDS: Heparin VIAL(*) 5000 UNITS/ML VIAL (FIVE THOUSAND) SUBCUT SCH (05:35)
[2019-02-14 05:58] LABS: ABS Eosinophils 0.2 10^3/ul (0-0.6); ABS Lymphocytes 0.5 10^3/ul (1.0-4.8); ABS Monocytes 0.5 10^3/ul (0-0.8); ABS Neutrophils 3.3 10^3/ul (1.5-7.7); Hematocrit 27 % (42-52); Hemoglobin 8.6 g/dL (14.0-18.0); Lymphocyte % 11.7 %; Mean Corpuscular HGB Conc 32 g/dL (31-36); Mean Corpuscular Hemoglobin 29 pg (27-31); Mean Corpuscular Volume 89 fL (80-94); Mean Platelet Volume 7.5 fL (7.4-10.4); Platelet Count 182 10^3/uL (150-450); Red Cell Distribution Width 18 % (10-15); White Blood Count 4.6 10^3/uL (3.5-10.8)
[2019-02-14 06:09] LABS: BUN/Creatinine Ratio 16.4 (8-20); Calcium 9.5 mg/dL (8.6-10.3); EGFR Non-African American 41.3 (>60); Potassium 3.9 mmol/L (3.5-5.0)
[2019-02-14] MEDS: Metoprolol Succinate XL TAB* 25 MG PO SCH (07:28)
[2019-02-14] MEDS: Furosemide IV* 10 MG/ML VIAL (40 MG) IV SCH (07:28)
[2019-02-14] MEDS: Digoxin TAB* 0.125 MG PO SCH (07:28)
[2019-02-14] MEDS: Pantoprazole TAB * 40 MG TAB PO SCH (07:28)
[2019-02-14] MEDS: Isosorbide Mononitrate ER TAB* 30 MG PO SCH (07:28)
[2019-02-14] MEDS: Aspirin 81 mg CHEW TAB* 81 MG TAB.CHEW PO SCH (07:28)
[2019-02-14] MEDS: NON FORMULARY MED* (Iron Polysaccharide Complex [Ferrex 150] 150 MG) PO SCH (07:29)
[2019-02-14] MEDS: Acetaminophen TAB* 325 MG PO PRN (07:32)
--- NOTE | 2019-02-14 10:10 | CONS ---
CONSULTATION REPORT: DATE OF CONSULT: 01/2319 REFERRING PHYSICIAN: Hospitalist. PRIMARY CARE PHYSICIAN: Dr. Fields. REASON FOR CONSULT: Bilateral deep venenous thrombosis. HISTORY OF PRESENT ILLNESS: The patient has had several falls recently. In November , he fell in the driveway on an area of the grass and hit his head, he had fairly extensive bruising but recovered without coming into the hospital. Two weeks ago, he was at a dresser and fell. He says for that fall his knee gave out. No dizziness or lightheadedness prior to the event. He twisted his knee and then was bedbound for several days. He began to notice increasing swelling in both lower extremities. He assumed this was from his CHF and he monitored at home. A day or 2 later, he started to have some penile swelling, which concerned him more and that brought him to the emergency room. Legs were swollen enough that he had difficulty walking, difficulty doing anything. He denies shortness of breath, chest pain, fevers, or chills. He had called Dr. Fields's office who increased his Lasix from 1 pill to 2 pills, but this had minimal effect. On presentation to the emergency room, he was noted to have bilateral lower extremity edema. His blood work was remarkable for BNP of 1147. He had negative troponin, normal EKG, his weight was also noted to be up to 190 pounds from 175 pounds at baseline. He had an ultrasound of lower extremities bilaterally. The ultrasound showed a mass in the right groin measuring up to 4.3 cm with question of hematoma, popliteal cyst at the right knee, left posterior peroneal vein did not demonstrate compression suggestive of a thrombus and the distal right femoral vein did not compress suggestive of a thrombus. It was also noted that there appeared to be a thrombi in the peroneal vein. Given the patient's complex history including history of multiple GI bleeds, Hematology was consulted to discuss anticoagulation. PAST MEDICAL HISTORY: 1. CHF. 2. Atrial fibrillation, currently not anticoagulated. 3. Coronary artery disease, status post CABG in 1984 and 1995. 4. Mitral valve repair. 5. Hypertension. 6. Hyperlipidemia. 7. Chronic iron deficiency anemia. 8. GERD and Castillo esophagitis. 9. BPH. 10. First-degree AV block. 11. Gout. 12. Stage 3 renal disease with a baseline creatinine of 1.8. 13. Arthritis. 14. Depression. 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 Fields. 16. 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 Cardiac bypass in 1984. 2. Stent placement in 1995. 3. Femoral hernia repair in 2008. 4. Hoa fundoplication and appendectomy in 1999. MEDICATIONS: Home medications were: 1. Aspirin 81 mg a day. 2. Tylenol p.r.n. 3. Digoxin 125 daily. 4. Finasteride 5 mg daily. 5. Iron polysaccharide 150 daily. 6. Isosorbide mononitrate ER 30 daily. 7. Metoprolol 25 mg daily. 8. Multivitamin a day. 9. Nitroglycerin 0.4 p.r.n. 10. Omeprazole 20 mg daily. 11. Torsemide 40 mg daily. 11. B complex. ALLERGIES: He is allergic to IODINE. FAMILY HISTORY: Coronary artery disease, heart failure. There has been history of thrombosis. SOCIAL HISTORY: He lives alone with his son being in the area. He is independent of ADLs and he is frequently driving. Former smoker. Currently does not drink. REVIEW OF SYSTEMS: A 10-point review of systems was dominated by swelling of the legs, weight gain, pretty much immobile. He has some shortness of breath, swelling of the groin, and back pain, but otherwise reviewed and negative. PHYSICAL EXAM: BP 135/63, temperature 98.1, pulse 71, respirations 18, O2 sat 98%. HEENT: Mucosa moist. No lesions. Conjunctivae are pale. No lymphadenopathy. Lungs are clear to auscultation, though decreased sounds. Heart: Regular on my exam, S1, S2. Abdomen: No distention. No hepatosplenomegaly. Groin is markedly edematous as are the legs bilaterally up to the thighs. He has good circulation. ASSESSMENT AND PLAN: This is an 88-year-old male with a history of recurrent gastrointestinal bleeds including arteriovenous malformation, who is not currently anticoagulated due to severe iron deficiency anemia, now presents with potential bilateral DVTs. Risks of anticoagulation as well as risks of not treating the DVTs were discussed with the family, the potential for an IVC filter. All options carry high risk of compilations and risk of progression and from untreated acute thrombi are significant. Spent 1 hr with patient and family discussing anticoagulation and pros and cons of a filter. 1. Ultrasound was reviewed in detail with Radiology. The vessels were noncompressible, most likely representing DVT but no thrombus is seen. While DVT most likely accounts for findings, study is not definitive. - We will repeat lower extremity ultrasound as a confirmatory study. 2. He has a question of hematoma in the right groin, could be acute or chronic , mass may be LN. Reviewed with radiology, check CT noncontrast to verify. 3. Placed on Lovenox 90 subcu daily pending further evaluation. 4. Continue diuretics for CHF. 02/14/19 ADDENDUM: Reviewed repeat ultrasound and it showed no thrombus and the question of hematoma in the right groin was a lymph node. No indication for anticoagulation or IVC filter, we will manage CHF. Results discussed with patient and family. [id number]/[facility] #: [id number] [place]
[2019-02-14 11:31] VITALS: BP 119/58
--- NOTE | 2019-02-15 19:01 | DS ---
CC: Dr. Amarilis Fields; Dr. Victoriano Cm * DISCHARGE SUMMARY: DATE OF ADMISSION: 02/11/19 DATE OF DISCHARGE: 02/14/19 PRIMARY CARE PROVIDER: Dr. Amarilis Fields. MY ATTENDING WHILE IN THE HOSPITAL: Dr. Elena Becker.* (DICTATED BY DARA VALVERDE) OUTPATIENT NURSE AUDITOR: Dr. Victoriano Cm. PRIMARY DISCHARGE DIAGNOSIS: Congestive heart failure exacerbation. SECONDARY DISCHARGE DIAGNOSES: 1. Atrial fibrillation. 2. Coronary artery disease. 3. Mitral valve repair. 4. Hypertension. 5. Hyperlipidemia. 6. Anemia. 7. Gastroesophageal reflux disease with Castillo esophagus. 8. BPH. 9. Gout. 10. Chronic kidney disease stage 3. 11. Osteoarthritis. 12. Depression. STUDIES DONE WHILE IN THE HOSPITAL: Chest x-ray from 02/11/19 read as no active cardiopulmonary disease. Echocardiogram on 02/11/19 read as atrial fibrillation, rate of 90, QTc of 425, T-wave inversions in the lateral leads. Compared to previous exam, T-wave inversions are new. Transthoracic echocardiogram from 02/11/19 read as left ventricle EF 50% to 55%, no regional wall motion abnormalities, systolic function is mildly to moderately reduced, the right ventricle systolic pressure is severely increased, septal flattening; there is flattening of the interventricular septum consistent with volume pressure overload, left atrium is severely dilated, mitral valve consistent with mild stenosis and moderate regurgitation; status post MitraClip, aortic valve has evidence of stenosis and there is mild regurgitation, tricuspid valve ; there is severe regurgitation, pulmonary artery systolic pressure is fairly increased, no change from study from 09/22/18. Venous Doppler study from read as there is suggestion of partial thrombus in the right mid and distal femoral vein, although flow is noted. There appears to be thrombus in one of the paired peroneal veins. In the right groin, hypoechoic mass surrounding the superficial vessel measures 4.3 x 1.2 x 2.7 cm and it may represent hematoma. Complex fluid collection in the medial right knee may represent a popliteal cyst. Lower extremity CT from 02/13/19 read as the nodule in the right inguinal region represents slightly prominent lymph node, small amount of ascites within the pelvis. Venous Doppler study from 02/13/19 read as no evidence of deep vein thrombosis in either lower extremity, the vessels are difficult to compress due to edema. MEDICATIONS AT DISCHARGE: 1. Nitroglycerin 0.4 mg sublingual as needed for chest pain. 2. Multivitamin 1 tab p.o. daily. 3. Finasteride 5 mg p.o. daily. 4. Vitamin B 1 cap p.o. daily. 5. Aspirin 81 mg daily. 6. Omeprazole 20 mg p.o. daily. 7. Torsemide 40 mg p.o. daily, decrease to 20 mg after 7 days. 8. Isosorbide mononitrate 30 mg p.o. daily. 9. Digoxin 0.25 mg p.o. daily. 10. Iron polysaccharide complex 150 mg p.o. daily. 11. Tylenol 500 mg p.o. b.i.d. 12. Metoprolol succinate 25 mg p.o. daily. Medications Discontinued on Discharge: None. HOSPITAL COURSE: This is a brief summary of the patient's presentation. For more details, please see the history and physical from DARA Sue, on 02/11/19. In brief, the patient is an 88-year-old male with past medical history significant for the above who presented to the emergency department with 2 weeks of increased lower extremity swelling and edema with penile swelling and weight gain of approximately 15 pounds. The patient had no shortness of breath or dyspnea on exertion. The patient had a slightly elevated troponin and elevated creatinine with some pulmonary congestive changes on his chest x-ray. The patient was treated with IV Lasix with dramatic diuresis and improvement in his lower extremity swelling. The patient had lower extremity venous Doppler study as above, which initially showed concern for DVT, but then this was determined to be an artifact due to the patient's edema. The patient was initially given Lovenox, but this was discontinued. The patient does have a history of GI bleeding on anticoagulation. The patient was seen in consultation by Dr. Les Dennis of hematology-oncology who recommend against filter placement or anticoagulation given the patient's history of GI bleeding. The patient's functional status improved. The patient had minimal weight loss, though he did diurese well while in the hospital. The patient was stable and amenable for discharge on . PHYSICAL EXAMINATION ON THE DAY OF DISCHARGE: General: The patient is an 88- year- old male who appears stated age and sitting comfortably in the bed, in no acute distress. Vital Signs: Temperature 98.0, pulse rate 70, respiratory rate 20, oxygen saturation 98% on room air, blood pressure 119/58. HEENT: Head : Normocephalic, atraumatic. Sclerae anicteric. No conjunctival injection. Nasal mucosa is moist. Oral mucosa is moist. No pharyngeal erythema, discharge , or exudate. Neck: Supple, nontender. No lymphadenopathy. No carotid bruits auscultated. No JVD. Cardiac: Irregularly irregular rhythm. No clicks , murmurs, gallops, or rubs. Pulses 2+ in the bilateral dorsalis pedis, posterior tibialis and radial areas. 1+ bilateral lower extremity edema noted with slight erythema. Respiratory: Clear to auscultation bilaterally. No wheezes, rales, or rhonchi. Good air exchange bilaterally. Abdomen: Soft, nontender, nondistended. Bowel sounds present, normoactive in all 4 quadrants. No hepatosplenomegaly. No abdominal bruits auscultated. No hepatojugular reflux. Genitourinary: No suprapubic or CVA tenderness. Skin: Clean, dry, intact. No rashes. Neuro: Cranial nerves II through XII intact. No focal deficits. Alert and oriented x3. Psychiatric: Pleasant and cooperative. DISCHARGE PLAN: The patient will be discharged to home. The patient initially had his torsemide increased by his primary care provider to 40 mg. This will be continued as this matches his dose of Lasix while in the hospital. Initially , the patient failed this dose as outpatient; however, given his improved edema and renal function, this will likely be more effective at this time. The patient should monitor his weight daily and follow with his primary care provider for greater than 3-pound weight gain. The patient should follow up with his primary care provider within 1 week for general medical management and at that time, have a CBC and a BMP for monitoring of his hemoglobin and his renal function. The patient's hemoglobin is significantly below his baseline. The patient was found to be iron deficient while in the hospital. The patient should be continued on his iron supplementation and IV iron should be considered if he is not responding or not tolerating to oral iron. The patient should follow up with his clinical trial manager as scheduled in early February and discuss the ongoing management of his CHF. The patient will return to the hospital for alarming symptoms such as passing out, chest pain, palpitations, or severe shortness of breath. TIME SPENT: Approximately 60 minutes were spent on the discharge of this patient, 30 of which were spent [id number] with the patient obtaining history and physical and discussing treatment plan. DARA VALVERDE [id number]/[facility] #: [id number] [place]
== END 2019-02-14 11:25 | disposition home or self-care (01) | DRG 291 ==
LOC: ED 14:14 → MED 21:07
PROVIDERS: ADMIT Internal Medicine; ATTEND Internal Medicine
DX: I13.0 Hypertensive heart and chronic kidney disease with heart failure and stage 1 through stage 4 chronic kidney disease, or unspecified chronic kidney disease (principal); I50.33 Acute on chronic diastolic (congestive) heart failure; I82.411 Acute embolism and thrombosis of right femoral vein; N18.3 Chronic kidney disease, stage 3 (moderate); I48.91 Unspecified atrial fibrillation; K21.9 Gastro-esophageal reflux disease without esophagitis; K22.70 Barrett's esophagus without dysplasia; I25.10 Atherosclerotic heart disease of native coronary artery without angina pectoris; N40.0 Benign prostatic hyperplasia without lower urinary tract symptoms; D50.9 Iron deficiency anemia, unspecified; Z66 Do not resuscitate; D64.89 Other specified anemias; E78.5 Hyperlipidemia, unspecified; I44.0 Atrioventricular block, first degree; M10.9 Gout, unspecified; M19.90 Unspecified osteoarthritis, unspecified site; F32.9 Major depressive disorder, single episode, unspecified; Z95.1 Presence of aortocoronary bypass graft; Z95.5 Presence of coronary angioplasty implant and graft; Z79.1 Long term (current) use of non-steroidal anti-inflammatories (NSAID); Z79.82 Long term (current) use of aspirin; Z79.899 Other long term (current) drug therapy; Z91.041 Radiographic dye allergy status; Z82.49 Family history of ischemic heart disease and other diseases of the circulatory system; Z82.3 Family history of stroke; Z80.9 Family history of malignant neoplasm, unspecified; Z87.891 Personal history of nicotine dependence; Z91.81 History of falling
CPT/HCPCS: 36415; 71046; 80048; 80053; 81003; 82728; 83540; 83550; 83880; 84484; 85025; 85379; 85610; 86140; 93005; 93306; 93970; 99284; A9270-GY; J1644; J1650; J1940